=== PATIENT | male | born 1975 | race Caucasian/White ===

== ENCOUNTER 2025-10-02 20:11 | Inpatient (IN) | payer SELFPAY ==
[2025-10-02] MEDS ORDERED: Calcium Carbonate 500 MG ChewTAB PO PRN (22:39)
[2025-10-02] MEDS ORDERED: Guaifenesin DM 100-10/5 ML UDCUP PO PRN (22:39)
[2025-10-02] MEDS ORDERED: Senokot S 8.6-50 MG TAB PO PRN (22:39)
[2025-10-02] MEDS ORDERED: Acetaminophen 325 MG TAB PO PRN (22:39)
[2025-10-02] MEDS ORDERED: Ondansetron PF 4 MG/2 ML Vial IVP PRN (22:39)
[2025-10-02] MEDS ORDERED: Nitroglycerin 0.4 MG TAB (25 Tab Bottle) SL PRN (22:42)
[2025-10-02] MEDS ORDERED: Sulfameth/Trimethoprim DS 800-160mg TAB PO SCH (22:45)
[2025-10-02] MEDS: Carvedilol 6.25 MG TAB PO SCH (23:00)
[2025-10-02] MEDS: Nitroglycerin 2% Ointment 1 INCH/1 GM Packet TOP SCH (23:01)
[2025-10-02] MEDS: ALPRAZolam 0.5 MG TAB PO PRN (23:04)
[2025-10-03 04:45] LABS: #Basophils Less than 0.03 10x3/uL (0.0-0.2); #Eosinophils Less than 0.03 10x3/uL (0.0-0.7); #Monocytes 0.09 10x3/uL (0.11-0.59); #Neutrophils 3.32 10x3/uL (1.40-6.50); %Basophils 0.0 % (0.0-1.0); %Eosinophils 0.0 % (0.0-10.0); %Lymphocytes 18.5 % (21.0-51.0); %Monocytes 2.1 % (0.0-10.0); %Neutrophils 78.7 % (42.0-75.0); Hematocrit 24.3 % (42.0-52.0); Hemoglobin 7.9 g/dL (14.0-18.0); Mean Corpuscular Hemoglobin 28.4 pg (27.0-31.0); Mean Corpuscular Volume 87.4 fL (78.0-98.0); Platelet Count 232 10x3/uL (130-400); Red Blood Cell (RBC) Count 2.78 mill/uL (4.70-6.10); White Blood Cell (WBC) Count 4.22 10x3/uL (4.8-10.8)
[2025-10-03 05:02] LABS: Anion Gap 16 mmol/L (10-20); BUN (Urea Nitrogen) 92 mg/dL (8.4-25.7); Calc. Creatinine Clearance 15 mL/min (70-130); Calcium 7.5 mg/dL (7.8-10.44); Carbon Dioxide 21 mmol/L (22-29); Chloride 99 mmol/L (98-107); Glucose 226 mg/dL (70-105); Magnesium 1.8 mg/dL (1.6-2.6); Potassium 4.9 mmol/L (3.5-5.1); Sodium 131 mmol/L (136-145)
[2025-10-03 08:38] LABS: HBSAB Concentration Less than 8.00 mIU/mL; Hep B Core Total Ab NONREACTIVE (NonReactive); Hep B Core Total Index 0.21 S/CO (0-0.79); Hep B Surf Ag NONREACTIVE S/CO (NonReactive); Hep C IgG Ab NONREACTIVE S/CO (NonReactive); Hep C Index 0.14 S/CO (0-0.79)
[2025-10-03] MEDS ORDERED: Sacubitril 49 MG/Valsartan 51 MG TABLET PO SCH (09:00)
[2025-10-03 09:05] LABS: Iron 45 ug/dL (65-175); Iron Binding Capacity, Total 183 mcg/dL (261-462)
[2025-10-03] MEDS: Spironolactone 25 MG TAB PO SCH (09:33)
[2025-10-03] MEDS: Pantoprazole 40 MG DR.TAB PO SCH (09:33)
[2025-10-03] MEDS: Carvedilol 25 MG TAB PO SCH (09:33)
[2025-10-03] MEDS: Heparin 5,000 UNITS/ML VIAL SC SCH (09:33)
[2025-10-03] MEDS: Aspirin 81 mg Enteric Coated Tablet PO SCH (09:33)
[2025-10-03] MEDS: prednisoLONE 10 MG ODT TAB PO SCH (09:34)
[2025-10-03] MEDS: Folic Acid/Vit B Comp W-C PO SCH (09:34)
[2025-10-03] MEDS: Sacubitril 49 MG/Valsartan 51 MG TABLET PO SCH (09:34)
[2025-10-03] MEDS: Calcitriol 0.25 MCG CAP PO SCH (09:34)
[2025-10-03] MEDS: EPOETIN ALFA-EPBX (ESRD) 10,000 UNITS/ML VIAL SC SCH (13:21)
[2025-10-03] MEDS: Heparin 10,000 UNITS/ 10 ML VIAL FS SCH (14:27)
[2025-10-03] MEDS: Rosuvastatin 20 MG TAB PO SCH (20:41)
[2025-10-04 01:47] LABS: Bacteria/HPF None Seen HPF (None Seen); Glucose, Urine (Dipstick) 70 mg/dL (Negative); Leukocyte 75 Leu/uL (Negative); Protein, Urine (Dipstick) 300 mg/dL (Neg-Trace); RBC/HPF Greater than 50 HPF (0-3); Specific Gravity, Urine 1.021 (1.002-1.036); WBC/HPF 21-50 HPF (0-3)
[2025-10-04 02:02] LABS: Sodium, Urine Less than 20 mmol/L (Not Available); Urea Nitrogen, Random Urine 317 mg/dl
[2025-10-04 02:14] LABS: Protein, Urine Random Quant 882 mg/dL (1-14)
[2025-10-04] MEDS: Sodium Ferric Gluconate 250 MG in Sodium Chloride 0.9% 250 ML 250 ML IVPB SCH (06:51)
[2025-10-04 07:22] LABS: #Basophils Less than 0.03 10x3/uL (0.0-0.2); #Eosinophils 0.15 10x3/uL (0.0-0.7); #Monocytes 0.62 10x3/uL (0.11-0.59); #Neutrophils 3.28 10x3/uL (1.40-6.50); %Basophils 0.0 % (0.0-1.0); %Eosinophils 2.6 % (0.0-10.0); %Lymphocytes 29.1 % (21.0-51.0); %Monocytes 10.8 % (0.0-10.0); %Neutrophils 57.2 % (42.0-75.0); Hematocrit 23.1 % (42.0-52.0); Hemoglobin 7.7 g/dL (14.0-18.0); Mean Corpuscular Hemoglobin 28.3 pg (27.0-31.0); Mean Corpuscular Volume 84.9 fL (78.0-98.0); Platelet Count 225 10x3/uL (130-400); Red Blood Cell (RBC) Count 2.72 mill/uL (4.70-6.10); White Blood Cell (WBC) Count 5.74 10x3/uL (4.8-10.8)
[2025-10-04 07:38] LABS: Albumin 2.0 g/dL (3.1-4.5); Anion Gap 15 mmol/L (10-20); BUN (Urea Nitrogen) 52 mg/dL (8.4-25.7); BUN/Creatinine Ratio 10.88; Calc. Creatinine Clearance 22 mL/min (70-130); Calcium 7.5 mg/dL (7.8-10.44); Carbon Dioxide 25 mmol/L (22-29); Chloride 99 mmol/L (98-107); Glucose 108 mg/dL (70-105); Potassium 4.2 mmol/L (3.5-5.1); Sodium 135 mmol/L (136-145)
[2025-10-04] MEDS: Albumin 25% 25 GM (100 mL) BOT IVPB SCH ×2 (09:12→14:54)
[2025-10-04] MEDS: NIFEdipine XL 30 MG ER.TAB PO SCH (09:12)
[2025-10-05 05:44] LABS: Albumin 2.7 g/dL (3.1-4.5); Anion Gap 15 mmol/L (10-20); BUN (Urea Nitrogen) 62 mg/dL (8.4-25.7); BUN/Creatinine Ratio 10.40; Calc. Creatinine Clearance 19 mL/min (70-130); Calcium 7.8 mg/dL (7.8-10.44); Carbon Dioxide 26 mmol/L (22-29); Chloride 97 mmol/L (98-107); Glucose 131 mg/dL (70-105); Potassium 4.6 mmol/L (3.5-5.1); Sodium 133 mmol/L (136-145)
[2025-10-06 07:21] LABS: #Basophils Less than 0.03 10x3/uL (0.0-0.2); #Eosinophils 0.11 10x3/uL (0.0-0.7); #Monocytes 0.69 10x3/uL (0.11-0.59); #Neutrophils 3.09 10x3/uL (1.40-6.50); %Basophils 0.0 % (0.0-1.0); %Eosinophils 2.1 % (0.0-10.0); %Lymphocytes 25.9 % (21.0-51.0); %Monocytes 13.1 % (0.0-10.0); %Neutrophils 58.5 % (42.0-75.0); Hematocrit 22.2 % (42.0-52.0); Hemoglobin 7.0 g/dL (14.0-18.0); Mean Corpuscular Hemoglobin 28.1 pg (27.0-31.0); Mean Corpuscular Volume 89.2 fL (78.0-98.0); Platelet Count 244 10x3/uL (130-400); Red Blood Cell (RBC) Count 2.49 mill/uL (4.70-6.10); White Blood Cell (WBC) Count 5.28 10x3/uL (4.8-10.8)
[2025-10-06 07:34] LABS: Albumin 2.9 g/dL (3.1-4.5); Anion Gap 16 mmol/L (10-20); BUN (Urea Nitrogen) 60 mg/dL (8.4-25.7); BUN/Creatinine Ratio 11.61; Calc. Creatinine Clearance 21 mL/min (70-130); Calcium 8.2 mg/dL (7.8-10.44); Carbon Dioxide 25 mmol/L (22-29); Chloride 99 mmol/L (98-107); Glucose 114 mg/dL (70-105); Potassium 4.8 mmol/L (3.5-5.1); Sodium 135 mmol/L (136-145)
[2025-10-06] MEDS: EPOETIN ALFA-EPBX (ESRD) 10,000 UNITS/ML VIAL SC SCH (12:56)
[2025-10-07 08:15] LABS: #Basophils Less than 0.03 10x3/uL (0.0-0.2); #Eosinophils 0.37 10x3/uL (0.0-0.7); #Monocytes 0.73 10x3/uL (0.11-0.59); #Neutrophils 2.29 10x3/uL (1.40-6.50); %Basophils 0.2 % (0.0-1.0); %Eosinophils 7.3 % (0.0-10.0); %Lymphocytes 32.2 % (21.0-51.0); %Monocytes 14.4 % (0.0-10.0); %Neutrophils 45.3 % (42.0-75.0); Hematocrit 21.3 % (42.0-52.0); Hemoglobin 7.0 g/dL (14.0-18.0); Mean Corpuscular Hemoglobin 28.9 pg (27.0-31.0); Mean Corpuscular Volume 88.0 fL (78.0-98.0); Platelet Count 233 10x3/uL (130-400); Red Blood Cell (RBC) Count 2.42 mill/uL (4.70-6.10); White Blood Cell (WBC) Count 5.06 10x3/uL (4.8-10.8)
[2025-10-07 08:32] LABS: Albumin 2.6 g/dL (3.1-4.5); Anion Gap 16 mmol/L (10-20); BUN (Urea Nitrogen) 53 mg/dL (8.4-25.7); BUN/Creatinine Ratio 11.42; Calc. Creatinine Clearance 23 mL/min (70-130); Calcium 8.0 mg/dL (7.8-10.44); Carbon Dioxide 26 mmol/L (22-29); Chloride 100 mmol/L (98-107); Glucose 93 mg/dL (70-105); Potassium 4.3 mmol/L (3.5-5.1); Sodium 138 mmol/L (136-145)
[2025-10-07] MEDS: Sodium Ferric Gluconate 250 MG in Sodium Chloride 0.9% 250 ML 250 ML IVPB SCH (15:15)
[2025-10-07 15:52] VITALS: BMI 29.5
[2025-10-07] MEDS: Melatonin 3 MG TAB PO PRN (20:51)
[2025-10-08 05:21] VITALS: BMI 27.2
[2025-10-08 05:25] LABS: #Basophils Less than 0.03 10x3/uL (0.0-0.2); #Eosinophils 0.06 10x3/uL (0.0-0.7); #Monocytes 0.60 10x3/uL (0.11-0.59); #Neutrophils 2.06 10x3/uL (1.40-6.50); %Basophils 0.2 % (0.0-1.0); %Eosinophils 1.4 % (0.0-10.0); %Lymphocytes 33.4 % (21.0-51.0); %Monocytes 14.4 % (0.0-10.0); %Neutrophils 49.6 % (42.0-75.0); Hematocrit 23.0 % (42.0-52.0); Hemoglobin 7.2 g/dL (14.0-18.0); Mean Corpuscular Hemoglobin 27.6 pg (27.0-31.0); Mean Corpuscular Volume 88.1 fL (78.0-98.0); Platelet Count 239 10x3/uL (130-400); Red Blood Cell (RBC) Count 2.61 mill/uL (4.70-6.10); White Blood Cell (WBC) Count 4.16 10x3/uL (4.8-10.8)
[2025-10-08 05:41] LABS: Albumin 2.6 g/dL (3.1-4.5); Anion Gap 15 mmol/L (10-20); BUN (Urea Nitrogen) 53 mg/dL (8.4-25.7); BUN/Creatinine Ratio 10.35; Calc. Creatinine Clearance 19 mL/min (70-130); Calcium 8.1 mg/dL (7.8-10.44); Carbon Dioxide 27 mmol/L (22-29); Chloride 99 mmol/L (98-107); Glucose 121 mg/dL (70-105); Potassium 5.1 mmol/L (3.5-5.1); Sodium 136 mmol/L (136-145)
[2025-10-08 09:58] VITALS: TEMP 97.6
[2025-10-08 18:50] VITALS: BP 139/64
== END 2025-10-08 19:50 | disposition home or self-care (01) | DRG 640 ==
LOC: 2NO 21:35 → T4-B 10-06 18:29
PROVIDERS: ADMIT Internal Medicine; ATTEND Hospitalist
PROC: 30233J1 Transfusion of Nonautologous Serum Albumin into Peripheral Vein, Percutaneous Approach (ICD-10-PCS; principal; 2025-10-02)
DX: E87.79 Other fluid overload (principal); I50.23 Acute on chronic systolic (congestive) heart failure; N18.6 End stage renal disease; J96.21 Acute and chronic respiratory failure with hypoxia; N17.0 Acute kidney failure with tubular necrosis; I13.2 Hypertensive heart and chronic kidney disease with heart failure and with stage 5 chronic kidney disease, or end stage renal disease; M31.0 Hypersensitivity angiitis; I5A Non-ischemic myocardial injury (non-traumatic); E78.5 Hyperlipidemia, unspecified; D63.1 Anemia in chronic kidney disease; R60.1 Generalized edema; E83.51 Hypocalcemia; E87.1 Hypo-osmolality and hyponatremia; E87.20 Acidosis, unspecified; E11.65 Type 2 diabetes mellitus with hyperglycemia; E88.09 Other disorders of plasma-protein metabolism, not elsewhere classified; Z91.158 Patient's noncompliance with renal dialysis for other reason; Z99.2 Dependence on renal dialysis; Z79.82 Long term (current) use of aspirin; Z79.899 Other long term (current) drug therapy
CPT/HCPCS: 36415; 71045; 80048; 80069; 81001; 82306; 82570; 82728; 83036; 83540; 83550; 83735; 83880; 83970; 84156; 84300; 84443; 84484; 84540; 85025; 86704; 86706; 86803; 87340; 90935; 93306; G0257; J1644; J2916; J7050; P9047; Q5105